=== PATIENT | female | born 1935 | race Caucasian/White ===

== ENCOUNTER 2016-12-22 15:26 | Emergency (ER) | payer OTHER ==
--- NOTE | 2016-12-22 16:13 | PROVIDER DOCUMENTATION ---
HPI-Neurological Disorder - General Chief Complaint: Weakness Stated Complaint: generalized weakness Time Seen by Provider: 12/22/16 15:48 Source: patient, family Allergies/Adverse Reactions: Patient Allergies Allergy/AdvReac Type Severity Reaction Status Date / Time codeine [Codeine] Allergy Severe Unknown Verified 12/06/12 16:38 Sulfa (Sulfonamide Allergy Intermediate NAUSEA Verified 12/06/12 16:38 Antibiotics) Home Medications: Home Medication List Medication Instructions Recorded Confirmed Last Taken Type Aspirin EC 81 mg PO DAILY 12/06/12 12/22/16 12/22/16 08:00 History Diltiazem C.d. [Cardizem C.d] 180 mg PO DAILY 12/06/12 12/22/16 12/22/16 08:00 History Omeprazole [Prilosec] 20 mg PO BID 12/06/12 12/22/16 12/22/16 08:00 History Baclofen 10 mg PO HS 12/29/14 12/22/16 12/21/16 20:00 History Citalopram [Celexa] 20 mg PO DAILY 12/29/14 12/22/16 12/22/16 08:00 History Clonazepam 1 mg PO BID 12/29/14 12/22/16 12/22/16 08:00 History Donepezil [Aricept] 10 mg PO HS 12/29/14 12/22/16 12/21/16 20:00 History Flecainide [Tambocor] 50 mg PO BID 12/29/14 12/22/16 12/22/16 08:00 History Losartan Potassium 25 mg PO DAILY 12/29/14 12/22/16 12/22/16 08:00 History - History of Present Illness-Neuro Nature of Presenting Problem: 81 with dementia who had decreased responsiveness and extreme weakness while bathing about 2 pm today. No focal weakness or change in speech. Onset/Duration: reports: other (2 pm) Timing: reports: still present Context: reports: other (taking a bath) Character of Altered Mental Status: reports: decreased responsiveness Any recent trauma/injury?: reports: none Character of Deficits: reports: new weakness, decreased ability to walk New weakness or altered sensation location:: reports: other (generalized. no focal finding) Cognitive Baseline: alert but disoriented Gait Baseline: walks without assistance (short distances) Associated Symptoms: reports: short of breath (mild, feels chilled) Review of Systems - Adult - REVIEW OF SYSTEMS - ADULT Constitutional: reports: see HPI Eyes: reports: no symptoms reported Ears, Nose, Mouth & Throat: reports: see HPI Cardiovascular: reports: no symptoms reported Respiratory: reports: shortness of breath Gastrointestinal: reports: no symptoms reported Genitourinary: reports: no symptoms reported Musculoskeletal: reports: no symptoms reported Integumentary: reports: no symptoms reported Neurological: reports: see HPI, other (dementia) Psychiatric: reports: no symptoms reported Past History - Adult - PAST MEDICAL HISTORY-ADULT Review of Records: reports: Old Records Reviewed, Nursing Assessment Review, Medications Reviewed Cardiovascular: reports: A-Fib, HTN Respiratory: reports: COPD (recent PFT suggest copd) Gastrointestinal: reports: denies history Genitourinary: reports: denies history Musculoskeletal: reports: arthritis Neurological: reports: CVA, dementia Other Conditions: reports: other cancer (breast) - PRIOR SURGERIES/PROCEDURES Surgical/Procedure History: reports: orthopedic (extremity) (right knee scope), other (left masectomy/lens sx/bladder tact/) - IMMUNIZATION STATUS Childhood Immunizations: See Nurse Assessment Flu Vaccine: See Nurse Assessment Physical Exam- Neurological - Physical Exam-Neuro Initial Vital Signs Reviewed: Yes General Appearance: alert, no apparent distress Eye Exam: bilateral eye: normal inspection, PERRL, EOMI HENMT: normal ENT inspection, pharynx normal Head Injury: no evidence of injury Neck: non-tender, supple, normal inspection Respiratory: chest non-tender, lungs clear, normal breath sounds Cardiovascular: regular rate, rhythm, no edema, no gallop, no JVD, no murmur Abdominal Exam: normal bowel sounds, non tender, soft, no organomegaly Lymphatic: no adenopathy Extremity: non-tender, normal inspection, no pedal edema handkerchief folder Exam: PERRL Motor/Sensory: no motor deficit, no sensory deficit Neurologic: grossly normal, no motor/sensory deficits Integumentary: normal color, normal turgor, warm/dry Psych/Mental Status: other (oriented x1) Progress - PLAN OF CARE/RESULTS Progress/Plan/Lab Results: Laboratory Tests 12/22/16 12/22/16 12/22/16 16:59 16:59 16:59 WBC 6.57 RBC 3.81 L Hgb 12.2 Hct 36.8 L MCV 96.6 MCH 32.0 H MCHC 33.2 RDW Std Deviation 12.9 Plt Count 228 MPV 10.2 Immature Gran % (Auto) 0.0 Neut % (Auto) 58.3 Lymph % (Auto) 31.8 [place] % (Auto) 7.8 Eos % (Auto) 1.5 Baso % (Auto) 0.6 Immature Gran # (Auto) 0.00 Neut # (Auto) 3.83 Lymph # (Auto) 2.09 [place] # (Auto) 0.51 Eos # (Auto) 0.10 Baso # (Auto) 0.04 PT INR PTT (Actin FS) Sodium 138 Potassium 4.1 Chloride 102 Carbon Dioxide 23 L Anion Gap 13 BUN 18 Creatinine 1.6 H Estimated GFR/1.73 m2 31 BUN/Creatinine Ratio 11 Glucose 94 Calculated Osmolality 277 Calcium 8.7 L Total Bilirubin 0.27 AST 11 ALT 10 Alkaline Phosphatase 94 Creatine Kinase 80 Troponin T Total Protein 6.5 Albumin 3.8 Globulin 2.7 Albumin/Globulin Ratio 1.4 Plasma Lactate Urine Source Urine Color Urine Turbidity Urine pH Ur Specific [place] Urine Protein Ur Glucose (Stick) Ur Ketones (Stick) Urine Blood Urine Nitrite Urine Bilirubin Urobilinogen Dipstick Urine Leukocytes Urine WBC (Auto) Urine RBC (Auto) U Epithel Cells (Auto) Urine Bacteria (Auto) Plasma/Serum Ethyl Alc 12/22/16 12/22/16 12/22/16 16:59 16:59 17:41 WBC RBC Hgb Hct MCV MCH MCHC RDW Std Deviation Plt Count MPV Immature Gran % (Auto) Neut % (Auto) Lymph % (Auto) [place] % (Auto) Eos % (Auto) Baso % (Auto) Immature Gran # (Auto) Neut # (Auto) Lymph # (Auto) [place] # (Auto) Eos # (Auto) Baso # (Auto) PT 10.8 INR 1.02 PTT (Actin FS) 26.2 Sodium Potassium Chloride Carbon Dioxide Anion Gap BUN Creatinine Estimated GFR/1.73 m2 BUN/Creatinine Ratio Glucose Calculated Osmolality Calcium Total Bilirubin AST ALT Alkaline Phosphatase Creatine Kinase Troponin T < 0.010 Total Protein Albumin Globulin Albumin/Globulin Ratio Plasma Lactate Urine Source CATH Urine Color YELLOW Urine Turbidity CLEAR Urine pH 6.0 Ur Specific [place] 1.012 Urine Protein NEGATIVE Ur Glucose (Stick) NEGATIVE Ur Ketones (Stick) NEGATIVE Urine Blood NEGATIVE Urine Nitrite NEGATIVE Urine Bilirubin NEGATIVE Urobilinogen Dipstick 3 A Urine Leukocytes NEGATIVE Urine WBC (Auto) <10 Urine RBC (Auto) <10 U Epithel Cells (Auto) <10 Urine Bacteria (Auto) NEGATIVE Plasma/Serum Ethyl Alc 12/22/16 18:48 WBC RBC Hgb Hct MCV MCH MCHC RDW Std Deviation Plt Count MPV Immature Gran % (Auto) Neut % (Auto) Lymph % (Auto) [place] % (Auto) Eos % (Auto) Baso % (Auto) Immature Gran # (Auto) Neut # (Auto) Lymph # (Auto) [place] # (Auto) Eos # (Auto) Baso # (Auto) PT INR PTT (Actin FS) Sodium Potassium Chloride Carbon Dioxide Anion Gap BUN Creatinine Estimated GFR/1.73 m2 BUN/Creatinine Ratio Glucose Calculated Osmolality Calcium Total Bilirubin AST ALT Alkaline Phosphatase Creatine Kinase Troponin T Total Protein Albumin Globulin Albumin/Globulin Ratio Plasma Lactate 0.7 Urine Source Urine Color Urine Turbidity Urine pH Ur Specific [place] Urine Protein Ur Glucose (Stick) Ur Ketones (Stick) Urine Blood Urine Nitrite Urine Bilirubin Urobilinogen Dipstick Urine Leukocytes Urine WBC (Auto) Urine RBC (Auto) U Epithel Cells (Auto) Urine Bacteria (Auto) Plasma/Serum Ethyl Alc Orders Category Date Time Status Cardiac Monitoring DIRECTED Care 12/22/16 15:58 Active Finger Stick Blood Sugar (ED) DIRECTED Care 12/22/16 15:58 Active Oxygen Therapy- ED Nursing DIRECTED Care 12/22/16 15:58 Active Saline Loc NOW Care 12/22/16 15:58 Active CHEST-PORTABLE [RAD] Stat Exams 12/22/16 15:59 Draft HEAD W/O CONTRAST [CT] Stat Exams 12/22/16 16:00 Completed ALCOHOL BLOOD Stat Lab 12/22/16 16:59 Completed BLOOD CULTURE [BLDCUL] Stat Lab 12/22/16 16:37 Results CBC WITH ELECTRONIC DIFF [HEME] Stat Lab 12/22/16 16:59 Completed CK PROFILE [SP CHEM] Stat Lab 12/22/16 16:59 Completed COMPREHENSIVE METABOLIC PANEL [CHEM] Stat Lab 12/22/16 16:59 Completed LACTATE, PLASMA [CHEM] Stat Lab 12/22/16 18:48 Completed PROTIME WITH INR [COAG] Stat Lab 12/22/16 16:59 Completed PTT [COAG] Stat Lab 12/22/16 16:59 Completed TROPONIN T Stat Lab 12/22/16 16:59 Completed URINALYSIS W/POSS RFLX CULT [URINALYSIS] Stat Lab 12/22/16 17:41 Completed Pulse Oximetry Stat Oth 12/22/16 15:58 Active EKG [EKG] Stat Ther 12/22/16 15:58 Ordered Vital Signs Pulse Resp BP Pulse Ox 12/22/16 19:30 62 18 164/48 96 12/22/16 16:40 64 19 147/93 99 12/22/16 15:43 66 27 H 147/93 99 codeine [Codeine] Allergy (Severe, Verified 12/06/12 16:38) Unknown makes her very nervous, feels like i could go to sleep and not wake up Sulfa (Sulfonamide Antibiotics) Allergy (Intermediate, Verified 12/06/12 16:38) NAUSEA Aspirin EC 81 mg PO DAILY 12/06/12 Diltiazem C.d. [Cardizem C.d] 180 mg PO DAILY 12/06/12 Omeprazole [Prilosec] 20 mg PO BID 12/06/12 Baclofen 10 mg PO HS 12/29/14 Citalopram [Celexa] 20 mg PO DAILY 12/29/14 Clonazepam 1 mg PO BID 12/29/14 Donepezil [Aricept] 10 mg PO HS 12/29/14 Flecainide [Tambocor] 50 mg PO BID 12/29/14 Losartan Potassium 25 mg PO DAILY 12/29/14 I&O 12/21/16 12/22/16 12/23/16 06:59 06:59 06:59 Output Total 100 Balance -100 Laboratory 12/22/16 12/22/16 12/22/16 18:48 17:41 16:59 WBC RBC Hgb Hct MCV MCH MCHC RDW Std Deviation Plt Count MPV Immature Gran % (Auto) Neut % (Auto) Lymph % (Auto) [place] % (Auto) Eos % (Auto) Baso % (Auto) Immature Gran # (Auto) Neut # (Auto) Lymph # (Auto) [place] # (Auto) Eos # (Auto) Baso # (Auto) PT INR PTT (Actin FS) Sodium Potassium Chloride Carbon Dioxide Anion Gap BUN Creatinine Estimated GFR/1.73 m2 BUN/Creatinine Ratio Glucose Calculated Osmolality Calcium Total Bilirubin AST ALT Alkaline Phosphatase Creatine Kinase Troponin T < 0.010 Total Protein Albumin Globulin Albumin/Globulin Ratio Plasma Lactate 0.7 Urine Source CATH Urine Color YELLOW Urine Turbidity CLEAR Urine pH 6.0 Ur Specific [place] 1.012 Urine Protein NEGATIVE Ur Glucose (Stick) NEGATIVE Ur Ketones (Stick) NEGATIVE Urine Blood NEGATIVE Urine Nitrite NEGATIVE Urine Bilirubin NEGATIVE Urobilinogen Dipstick 3 A Urine Leukocytes NEGATIVE Urine WBC (Auto) <10 Urine RBC (Auto) <10 U Epithel Cells (Auto) <10 Urine Bacteria (Auto) NEGATIVE Plasma/Serum Ethyl Alc 12/22/16 12/22/16 12/22/16 16:59 16:59 16:59 WBC 6.57 RBC 3.81 L Hgb 12.2 Hct 36.8 L MCV 96.6 MCH 32.0 H MCHC 33.2 RDW Std Deviation 12.9 Plt Count 228 MPV 10.2 Immature Gran % (Auto) 0.0 Neut % (Auto) 58.3 Lymph % (Auto) 31.8 [place] % (Auto) 7.8 Eos % (Auto) 1.5 Baso % (Auto) 0.6 Immature Gran # (Auto) 0.00 Neut # (Auto) 3.83 Lymph # (Auto) 2.09 [place] # (Auto) 0.51 Eos # (Auto) 0.10 Baso # (Auto) 0.04 PT 10.8 INR 1.02 PTT (Actin FS) 26.2 Sodium 138 Potassium 4.1 Chloride 102 Carbon Dioxide 23 L Anion Gap 13 BUN 18 Creatinine 1.6 H Estimated GFR/1.73 m2 31 BUN/Creatinine Ratio 11 Glucose 94 Calculated Osmolality 277 Calcium 8.7 L Total Bilirubin 0.27 AST 11 ALT 10 Alkaline Phosphatase 94 Creatine Kinase 80 Troponin T Total Protein 6.5 Albumin 3.8 Globulin 2.7 Albumin/Globulin Ratio 1.4 Plasma Lactate Urine Source Urine Color Urine Turbidity Urine pH Ur Specific [place] Urine Protein Ur Glucose (Stick) Ur Ketones (Stick) Urine Blood Urine Nitrite Urine Bilirubin Urobilinogen Dipstick Urine Leukocytes Urine WBC (Auto) Urine RBC (Auto) U Epithel Cells (Auto) Urine Bacteria (Auto) Plasma/Serum Ethyl Alc 12/22/16 16:59 WBC RBC Hgb Hct MCV MCH MCHC RDW Std Deviation Plt Count MPV Immature Gran % (Auto) Neut % (Auto) Lymph % (Auto) [place] % (Auto) Eos % (Auto) Baso % (Auto) Immature Gran # (Auto) Neut # (Auto) Lymph # (Auto) [place] # (Auto) Eos # (Auto) Baso # (Auto) PT INR PTT (Actin FS) Sodium Potassium Chloride Carbon Dioxide Anion Gap BUN Creatinine Estimated GFR/1.73 m2 BUN/Creatinine Ratio Glucose Calculated Osmolality Calcium Total Bilirubin AST ALT Alkaline Phosphatase Creatine Kinase Troponin T Total Protein Albumin Globulin Albumin/Globulin Ratio Plasma Lactate Urine Source Urine Color Urine Turbidity Urine pH Ur Specific [place] Urine Protein Ur Glucose (Stick) Ur Ketones (Stick) Urine Blood Urine Nitrite Urine Bilirubin Urobilinogen Dipstick Urine Leukocytes Urine WBC (Auto) Urine RBC (Auto) U Epithel Cells (Auto) Urine Bacteria (Auto) Plasma/Serum Ethyl Alc - EKG 1 Time of EKG reading by physician:: 17:10 EKG Read and Signed by:: Peggy Leavitt EKG Interpretation (*Must complete 3 of following elements*): Abnormal Rate: 62 Rhythm: nsr [place]: normal QRS: normal IN Interval: prolonged ST Wave: normal - XRAY 1 XRAY Study: Chest (no acute changes) - CT/MRI 1 CT Study: Head (microvascular changes, no acute change) - CHANGE OF SHIFT REPORT (ED Provider) Tentative Impression of Patient: Patient feeling better , symptoms resolved Departure - Departure Time of Disposition Order: 19:06 DIAGNOSIS: Weakness Disposition: HOME 01 Certified Medical Emergency: Emergent Condition: Stable Additional Instructions: Rest, Drink plenty of fluids. stand and walk only with assistance in the next day or two. Call your doctor to schedule a follow up appointment. Keep your cardiology appointment. Return to emergency department if symptoms recur or worsen. Continue your current medications. ED Follow Up Instructions: You have been treated by a care provider in the Emergency Department. These instructions are being provided to you so you can have an understanding of how to care for yourself upon discharge. Upon discharge from the Emergency Department, you are responsible for making arrangements for follow-up care by a physician of your choice. Take all prescribed medications as directed. Return to the Emergency Department immediately for any new or worsening symptoms. You may call the Physician Referral phone number at [phone] to obtain a list of Physicians who are taking new patients. Referrals: Alexandre Gleason MD [Primary Care Provider] - Tank Ash [NON-STAFF] - Instructions: Weakness, [id number]
--- NOTE | 2016-12-22 16:41 | Diag Imaging Result Document ---
PROCEDURE NAME: HEAD W/O CONTRAST - 12/22/2016 CT BRAIN WITHOUT CONTRAST. DOSE REDUCTION PROTOCOL. COMPARISON: 12/29/2014. FINDINGS: No parenchymal hemorrhage. No epidural or subdural hematoma. No subarachnoid hemorrhage. No mass identified on this noncontrasted exam. There are chronic microvascular ischemic changes. No hydrocephalus. No sinus opacification. IMPRESSION: 1. No hemorrhage. 2. Chronic microvascular ischemic changes. A preliminary report was given at 04:20 p.m..
[2016-12-22 17:18] LABS: MANUAL DIFF NEEDED? NO
[2016-12-22 17:29] LABS: BASO% 0.6 % (0.0-0.8); EOS% 1.5 % (0.0-10.0); HEMATOCRIT 36.8 % (37.0-47.0); HEMOGLOBIN 12.2 g/dL (12.0-16.0); LYMPH# 2.09 X1000 (1.2-3.4); LYMPH% 31.8 % (20.5-51.1); MCHC 33.2 g/dL (33-37); MCV 96.6 FL (81-99); MONO# 0.51 X1000 (0.11-0.59); MONO% 7.8 % (1.7-9.3); MPV 10.2 FL (7.4-10.4); NEUT% 58.3 % (42.2-75.2); PLT 228 X1000 (130-400); RBC 3.81 XMIL (4.2-5.4)
[2016-12-22 17:36] LABS: INR 1.02; PROTIME 10.8 Seconds (9.2-11.7); PTT 26.2 Seconds (22.0-36.0)
[2016-12-22 17:44] LABS: ALBUMIN 3.8 g/dL (3.5-5.0); CALCIUM 8.7 mg/dL (8.8-10.2); POTASSIUM 4.1 mmol/L (3.5-5.1); TOTAL BILIRUBIN 0.27 mg/dL (0.20-1.00); TOTAL PROTEIN 6.5 g/dL (6.3-8.3)
--- NOTE | 2016-12-22 18:06 | Diag Imaging Result Document ---
PROCEDURE NAME: CHEST-PORTABLE - 12/22/2016 CHEST, SINGLE VIEW: COMPARISON: 12/29/2014. FINDINGS: The lungs are well expanded. The heart is not enlarged. The vessels are not distended. No pneumonia. No pleural effusions identified. IMPRESSION: Negative chest.
[2016-12-22 18:08] LABS: URINE CULTURE NEEDED? NO; URINE MICRO REVIEW NEEDED? NO; URINE SOURCE CATH
[2016-12-22 18:20] LABS: BILIRUBIN URINE NEGATIVE (NEGATIVE); BLOOD URINE NEGATIVE (NEGATIVE); COLOR YELLOW; GLUCOSE URINE NEGATIVE (NEGATIVE); LEUKOCYTES URINE NEGATIVE (NEGATIVE); NITRITE URINE NEGATIVE (NEGATIVE); PROTEIN URINE NEGATIVE (NEGATIVE); SP GRAVITY URINE 1.012; TURBIDITY URINE CLEAR (CLEAR); UR EPITHELIAL CELLS <10 /HPF (<10); URINE BACTERIA NEGATIVE /HPF; URINE RBC <10 /HPF (<10); URINE WBC <10 /HPF (<10); UROBILINOGEN URINE 3 mg/dL (NORMAL)
[2016-12-22 19:30] VITALS: BP 164/48
--- NOTE | 2016-12-23 05:36 | EKG Report ---
Test Performed on : 12/22/2016 5:10:28 PM Test Reason : AMS Blood Pressure : / mmHG Vent. Rate : 062 BPM Atrial Rate : 062 BPM P-R Int : 224 ms QRS Dur : 088 ms QT Int : 450 ms P-R-T Axes : 054 036 046 degrees QTc Int : 456 ms Sinus rhythm. with 1st degree AV block. Otherwise normal ECG When compared with ECG of 29-DEC-2014 16:40, MO interval has increased Unconfirmed Result
== END 2016-12-22 19:30 | disposition home or self-care (01) ==
LOC: EDUNIT# → EDBD → ED 15:26
DX: R53.1 Weakness (principal); R94.31 Abnormal electrocardiogram [ECG] [EKG]; R94.09 Abnormal results of other function studies of central nervous system; R06.02 Shortness of breath; R68.83 Chills (without fever); I48.91 Unspecified atrial fibrillation; I10 Essential (primary) hypertension; J44.9 Chronic obstructive pulmonary disease, unspecified; Z79.899 Other long term (current) drug therapy; M19.90 Unspecified osteoarthritis, unspecified site; F03.90 Unspecified dementia, unspecified severity, without behavioral disturbance, psychotic disturbance, mood disturbance, and anxiety; Z79.82 Long term (current) use of aspirin; Z86.73 Personal history of transient ischemic attack (TIA), and cerebral infarction without residual deficits; Z85.3 Personal history of malignant neoplasm of breast
CPT/HCPCS: 70450; 71010; 80053; 81001; 82550; 82948; 83605; 84484; 85025; 85610; 85730; 87040; 93005; G0480; 80320

== ENCOUNTER 2018-11-11 23:55 | Inpatient (IN) ==
[2018-11-12] MEDS ORDERED: ZOFRAN IV ONE (04:20)
[2018-11-12 04:30] LABS: URINE SOURCE CLEAN CATCH
[2018-11-12 04:33] LABS: BASO# 0.03 X1000 (0.0-0.2); BASO% 0.5 % (0.0-0.8); EOS# 0.14 X1000 (0.0-0.7); EOS% 2.2 % (0.0-10.0); HEMOGLOBIN 11.8 g/dL (12.0-16.0); IMM GRAN# 0.02 X1000 (0.0-0.04); IMM GRAN% 0.3 % (0.0-0.5); LYMPH# 1.69 X1000 (1.2-3.4); LYMPH% 26.6 % (20.5-51.1); MCH 30.7 PG (27-31); MCHC 31.1 g/dL (33-37); MONO# 0.34 X1000 (0.11-0.59); MONO% 5.4 % (1.7-9.3); MPV 10.9 FL (7.4-10.4); NEUT# 4.13 X1000 (1.4-6.5); PLT 231 X1000 (130-400); RBC 3.84 XMIL (4.2-5.4); RDW 13.4 % (11.5-14.5); WBC 6.35 X1000 (4.8-10.8)
[2018-11-12 05:01] LABS: ALB/GLOB RATIO 1.3; ALBUMIN 4.2 g/dL (3.5-5.0); CALCIUM 9.5 mg/dL (8.8-10.2); CREATININE 1.7 mg/dL (0.5-0.9); POTASSIUM 3.9 mmol/L (3.5-5.1); TOTAL BILIRUBIN 0.32 mg/dL (0.20-1.00); TOTAL PROTEIN 7.4 g/dL (6.3-8.3)
[2018-11-12 05:59] LABS: BILIRUBIN URINE NEGATIVE (NEGATIVE); BLOOD URINE NEGATIVE (NEGATIVE); COLOR YELLOW; GLUCOSE URINE NEGATIVE (NEGATIVE); KETONE URINE NEGATIVE (NEGATIVE); LEUKOCYTES URINE MODERATE (NEGATIVE); NITRITE URINE NEGATIVE (NEGATIVE); PROTEIN URINE NEGATIVE (NEGATIVE); SP GRAVITY URINE 1.015; TURBIDITY URINE CLEAR (CLEAR); UR EPITHELIAL CELLS <10 /HPF (<10); URINE BACTERIA 1+ /HPF; URINE RBC <10 /HPF (<10); URINE WBC <10 /HPF (<10); UROBILINOGEN URINE NORMAL (NORMAL)
--- NOTE | 2018-11-12 06:32 | Diag Imaging Result Doc PS360 ---
FLAT/UPRIGHT ABD/1 VIEW CHEST - 11/12/2018 INDICATION: vomiting TECHNIQUE: COMPARISON: 04/01/2018 FINDINGS: The chest is clear. There is a nonobstructive bowel gas pattern. No free air or abnormal calcifications. IMPRESSION: Negative exam. Electronically signed by Pranav Cummins 11/12/2018 6:29 AM
--- NOTE | 2018-11-12 07:45 | PROVIDER DOCUMENTATION ---
This chart was entered by Fabio Romero Scribe, acting as scribe for Bret Wolff MD. HPI-Abdominal Pain/GI Problem - General Source: patient, family () - History of Present Illness-ABD Nature of Presenting Problems: 83 yof presents with as historian with cc of nausea and vomiting x 4 days worsening. reports significant dementia. also expresses he would like admitted for 3 days so she can have 100 days of rehab for weakness. <Bret Wolff - Last Filed: 11/12/18 07:44> <Bret Romero - Last Filed: 11/12/18 08:46> - General Chief Complaint: Nausea/Vomiting Stated Complaint: nausea/vomiting Time Seen by Provider: 11/12/18 03:47 Allergies/Adverse Reactions: Patient Allergies Allergy/AdvReac Type Severity Reaction Status Date / Time codeine [Codeine] Allergy Severe Unknown Verified 11/12/18 02:17 Sulfa (Sulfonamide Allergy Intermediate NAUSEA Verified 11/12/18 02:17 Antibiotics) Home Medications: Home Medication List Medication Instructions Recorded Confirmed Last Taken Type Aspirin EC 81 mg PO DAILY 12/06/12 11/12/18 11/11/18 History Omeprazole [Prilosec] 20 mg PO BID 12/06/12 11/12/18 11/11/18 History Clonazepam 1 mg PO Q6HR PRN 12/29/14 11/12/18 11/11/18 History Donepezil [Aricept] 10 mg PO HS 12/29/14 11/12/18 11/11/18 History Losartan Potassium 12.5 mg PO DAILY 12/29/14 11/12/18 11/11/18 History Acetaminophen [Tylenol] 2 tab PO Q4HR PRN 11/12/18 11/12/18 11/11/18 History Bisacodyl [Dulcolax] 1 supp RC QHS PRN 11/12/18 11/12/18 Unknown History Calcium Carbonate Chew [Tums] 2 tab PO Q4HR PRN 11/12/18 11/12/18 11/11/18 History Clopidogrel Bisulfate [Plavix] 1 tab PO DAILY 11/12/18 11/12/18 11/11/18 History Docusate Sodium [Colace] 1 cap PO BID PRN 11/12/18 11/12/18 Unknown History Ergocalciferol (Vitamin D2) 1 cap PO DIRECTED 11/12/18 11/12/18 Unknown History [Vitamin D2] Hydrocortisone [Proctozone-Hc] 1 applicatn RC BID PRN 11/12/18 11/12/18 Unknown History Ibuprofen [Motrin] 1 tab PO Q4HR PRN 11/12/18 11/12/18 11/11/18 History Memantine HCl [Namenda] 1 tab PO BID 11/12/18 11/12/18 11/11/18 History Metoprolol Succinate E.r. [Toprol 1 tab PO DAILY 11/12/18 11/12/18 11/11/18 History Xl] Nitroglycerin Sl [Nitroglycerin] 1 tab SL Q5H PRN PRN 11/12/18 11/12/18 History Polyethylene Glycol 3350 [Miralax] 17 gm PO QAM 11/12/18 11/12/18 11/11/18 History Quetiapine [Seroquel] 1 tab PO QHS 11/12/18 11/12/18 11/11/18 History Sennosides/Docusate Sodium 1 tab PO BID 11/12/18 11/12/18 11/11/18 History [Senna-S Tablet] Review of Systems - Adult - REVIEW OF SYSTEMS - ADULT Constitutional: denies: chills, fever, fatique Eyes: reports: no symptoms reported Ears, Nose, Mouth & Throat: reports: no symptoms reported Cardiovascular: denies: chest pain, irregular heart rate, orthopnea Respiratory: denies: cough, shortness of breath, wheezing Gastrointestinal: reports: nausea, vomiting. denies: abdominal pain, diarrhea, difficulty swallowing, frequent heartburn Genitourinary: denies: dysuria, flank pain, frequent UTI's, hematuria Musculoskeletal: reports: no symptoms reported Integumentary: reports: no symptoms reported Neurological: reports: no symptoms reported Psychiatric: reports: no symptoms reported Endocrine: reports: no symptoms reported Hematologic/Lymphatic: reports: no symptoms reported Allergic/Immunologic: reports: no symptoms reported All Other Systems: Reviewed and Negative <Bret Wolff - Last Filed: 11/12/18 07:44> Past History - Adult - PAST MEDICAL HISTORY-ADULT Review of Records: reports: Nursing Assessment Review, Medications Reviewed Cardiovascular: reports: A-Fib, HTN Respiratory: reports: COPD (recent PFT suggest copd) Gastrointestinal: reports: denies history Genitourinary: reports: denies history Musculoskeletal: reports: arthritis Neurological: reports: CVA, dementia Other Conditions: reports: other cancer (breast) - PRIOR SURGERIES/PROCEDURES Surgical/Procedure History: reports: orthopedic (extremity) (right knee scope), other (left masectomy/lens sx/bladder tact/) - IMMUNIZATION STATUS Childhood Immunizations: See Nurse Assessment Flu Vaccine: See Nurse Assessment - SOCIAL HISTORY Smoking: non-smoker <Bret Wolff - Last Filed: 11/12/18 07:44> Physical Exam-General - PHYSICAL EXAM-ADULT Initial Vital Signs Reviewed: Yes - CONSTITUTIONAL General Appearance: appears well, alert, no apparent distress - EYES Eyes: PERRL/EOMI, pink conjunctivae - HEAD, EARS, NOSE, MOUTH & THROAT HENMT: moist mucous membranes - NECK Neck: non-tender, full range of motion, supple, normal inspection - RESPIRATORY Respiratory: chest non-tender, lungs clear, normal breath sounds, no pleuratic chest pain, no respiratory distress, no accessory muscle use - CARDIOVASCULAR Cardiovascular: regular rate, rhythm, systolic murmur - GASTROINTESTINAL (ABDOMEN) Abdominal Exam: normal bowel sounds, non tender, soft, no organomegaly, no pulsatile mass - MUSCULOSKELETAL Back Exam: normal inspection, no CVA tenderness, no vertebral tenderness Extremity: normal range of motion, non-tender - SKIN Integumentary: normal color, normal turgor, warm/dry - NEUROLOGIC Neurologic: grossly normal - PSYCHIATRIC Psych/Mental Status: normal mood/affect, normal thought content, normal thought process. negative: oriented x 3 (x1) <Bret Wolff - Last Filed: 11/12/18 07:44> Progress - PLAN OF CARE/RESULTS Progress/Plan/Lab Results: Vital Signs - 8 hr 11/12/18 00:32 11/12/18 02:16 11/12/18 03:20 Temperature 97.6 F 97.5 F L Pulse Rate 61 69 Respiratory Rate 14 22 Blood Pressure 162/90 158/70 O2 Sat by Pulse Oximetry 96 96 11/12/18 04:47 Temperature Pulse Rate 62 Respiratory Rate 12 Blood Pressure 154/71 O2 Sat by Pulse Oximetry 98 Laboratory Results - last 24 hr 11/12/18 11/12/18 11/12/18 00:18 00:18 00:18 WBC 6.35 RBC 3.84 L Hgb 11.8 L Hct 38.0 MCV 99.0 MCH 30.7 MCHC 31.1 L RDW Std Deviation 13.4 Plt Count 231 MPV 10.9 H Immature Gran % (Auto) 0.3 Neut % (Auto) 65.0 Lymph % (Auto) 26.6 [place] % (Auto) 5.4 Eos % (Auto) 2.2 Baso % (Auto) 0.5 Immature Gran # (Auto) 0.02 Neut # (Auto) 4.13 Lymph # (Auto) 1.69 [place] # (Auto) 0.34 Eos # (Auto) 0.14 Baso # (Auto) 0.03 Sodium 141 Potassium 3.9 Chloride 103 Carbon Dioxide 27 Anion Gap 11 BUN 24 H Creatinine 1.7 H Estimated GFR/1.73 m2 29 BUN/Creatinine Ratio 14 Glucose 94 Calculated Osmolality 285 Calcium 9.5 Total Bilirubin 0.32 AST 226 H ALT 85 H Alkaline Phosphatase 108 H Total Protein 7.4 Albumin 4.2 Globulin 3.2 Albumin/Globulin Ratio 1.3 Amylase 115 Urine Source Urine Color Urine Turbidity Urine pH Ur Specific [place] Urine Protein Ur Glucose (Stick) Ur Ketones (Stick) Urine Blood Urine Nitrite Urine Bilirubin Urobilinogen Dipstick Urine Leukocytes Urine WBC (Auto) Urine RBC (Auto) U Epithel Cells (Auto) Urine Bacteria (Auto) 11/12/18 00:18 WBC RBC Hgb Hct MCV MCH MCHC RDW Std Deviation Plt Count MPV Immature Gran % (Auto) Neut % (Auto) Lymph % (Auto) [place] % (Auto) Eos % (Auto) Baso % (Auto) Immature Gran # (Auto) Neut # (Auto) Lymph # (Auto) [place] # (Auto) Eos # (Auto) Baso # (Auto) Sodium Potassium Chloride Carbon Dioxide Anion Gap BUN Creatinine Estimated GFR/1.73 m2 BUN/Creatinine Ratio Glucose Calculated Osmolality Calcium Total Bilirubin AST ALT Alkaline Phosphatase Total Protein Albumin Globulin Albumin/Globulin Ratio Amylase Urine Source CLEAN CATCH Urine Color YELLOW Urine Turbidity CLEAR Urine pH 6.0 Ur Specific [place] 1.015 Urine Protein NEGATIVE Ur Glucose (Stick) NEGATIVE Ur Ketones (Stick) NEGATIVE Urine Blood NEGATIVE Urine Nitrite NEGATIVE Urine Bilirubin NEGATIVE Urobilinogen Dipstick NORMAL Urine Leukocytes MODERATE A Urine WBC (Auto) <10 Urine RBC (Auto) <10 U Epithel Cells (Auto) <10 Urine Bacteria (Auto) 1+ Orders Category Date Time Status FLAT/UPRIGHT ABD/1 VIEW CHEST [RAD] Stat Exams 11/12/18 04:18 Completed AMYLASE [CHEM] Stat Lab 11/12/18 00:18 Completed CBC WITH ELECTRONIC DIFF [HEME] Stat Lab 11/12/18 00:18 Completed COMPREHENSIVE METABOLIC PANEL [CHEM] Stat Lab 11/12/18 00:18 Completed UA NIMS W/REFLEX CULT [URINALYSIS] Stat Lab 11/12/18 00:18 Completed Ondansetron [Zofran] Med 11/12/18 04:20 Discontinued 4 mg IV NOW ONE Result Diagrams: 11/12/18 00:18 11/12/18 00:18 - XRAY 1 XRAY: Bilateral XRAY Study: Abdomen Impression: Normal ( FINDINGS: The chest is clear. There is a nonobstructive bowel gas pattern. No free air or abnormal calcifications. IMPRESSION: Negative exam. Electronically signed by Pranav Cummins 11/12/2018 6:29 AM) - CHANGE OF SHIFT REPORT (ED Provider) Report Given and Care Transferred to:: Dr. Bret Romero Time of Transfer: 06:51 <Bret Wolff - Last Filed: 11/12/18 07:44> - PLAN OF CARE/RESULTS Progress/Plan/Lab Results: Vital Signs - 8 hr 11/12/18 00:50 11/12/18 01:00 11/12/18 01:10 Temperature Pulse Rate 65 68 67 Respiratory Rate 17 16 15 Blood Pressure O2 Sat by Pulse Oximetry 95 94 L 92 L 11/12/18 01:20 11/12/18 01:30 11/12/18 01:40 Temperature Pulse Rate 69 75 78 Respiratory Rate 15 19 15 Blood Pressure O2 Sat by Pulse Oximetry 94 L 94 L 94 L 11/12/18 01:50 11/12/18 02:00 11/12/18 02:10 Temperature Pulse Rate 69 66 73 Respiratory Rate 13 13 27 H Blood Pressure O2 Sat by Pulse Oximetry 93 L 93 L 93 L 11/12/18 02:16 11/12/18 02:20 11/12/18 02:30 Temperature Pulse Rate 67 65 66 Respiratory Rate 18 13 16 Blood Pressure 158/70 O2 Sat by Pulse Oximetry 94 L 94 L 93 L 11/12/18 02:40 11/12/18 02:50 11/12/18 03:00 Temperature Pulse Rate 68 63 70 Respiratory Rate 20 14 23 Blood Pressure O2 Sat by Pulse Oximetry 88 L 98 97 11/12/18 03:10 11/12/18 03:20 11/12/18 03:30 Temperature 97.5 F L Pulse Rate 61 65 63 Respiratory Rate 12 11 L 19 Blood Pressure O2 Sat by Pulse Oximetry 98 98 97 11/12/18 03:40 11/12/18 03:50 11/12/18 04:00 Temperature Pulse Rate 70 82 70 Respiratory Rate 14 20 16 Blood Pressure O2 Sat by Pulse Oximetry 99 100 98 11/12/18 04:03 11/12/18 04:10 11/12/18 04:20 Temperature Pulse Rate 68 71 68 Respiratory Rate 21 19 17 Blood Pressure 154/68 O2 Sat by Pulse Oximetry 98 98 99 11/12/18 04:30 11/12/18 04:33 11/12/18 04:40 Temperature Pulse Rate 70 Respiratory Rate 15 Blood Pressure 154/71 O2 Sat by Pulse Oximetry 98 94 L 97 11/12/18 04:47 11/12/18 04:50 11/12/18 05:00 Temperature Pulse Rate 62 65 63 Respiratory Rate 12 16 14 Blood Pressure 154/71 O2 Sat by Pulse Oximetry 98 98 98 11/12/18 05:10 11/12/18 05:20 11/12/18 05:30 Temperature Pulse Rate 67 61 63 Respiratory Rate 22 15 12 Blood Pressure O2 Sat by Pulse Oximetry 100 11/12/18 05:40 11/12/18 05:50 11/12/18 06:00 Temperature Pulse Rate 70 61 63 Respiratory Rate 16 14 13 Blood Pressure O2 Sat by Pulse Oximetry 98 99 99 11/12/18 06:10 11/12/18 06:20 11/12/18 06:30 Temperature Pulse Rate 59 L 61 64 Respiratory Rate 11 L 16 15 Blood Pressure O2 Sat by Pulse Oximetry 96 98 100 11/12/18 06:40 11/12/18 06:50 11/12/18 07:00 Temperature Pulse Rate 61 70 67 Respiratory Rate 16 13 13 Blood Pressure O2 Sat by Pulse Oximetry 99 94 L 99 11/12/18 07:10 Temperature Pulse Rate 66 Respiratory Rate 15 Blood Pressure O2 Sat by Pulse Oximetry 99 Laboratory Results - last 24 hr 11/12/18 11/12/18 11/12/18 00:18 00:18 00:18 WBC 6.35 RBC 3.84 L Hgb 11.8 L Hct 38.0 MCV 99.0 MCH 30.7 MCHC 31.1 L RDW Std Deviation 13.4 Plt Count 231 MPV 10.9 H Immature Gran % (Auto) 0.3 Neut % (Auto) 65.0 Lymph % (Auto) 26.6 [place] % (Auto) 5.4 Eos % (Auto) 2.2 Baso % (Auto) 0.5 Immature Gran # (Auto) 0.02 Neut # (Auto) 4.13 Lymph # (Auto) 1.69 [place] # (Auto) 0.34 Eos # (Auto) 0.14 Baso # (Auto) 0.03 Sodium 141 Potassium 3.9 Chloride 103 Carbon Dioxide 27 Anion Gap 11 BUN 24 H Creatinine 1.7 H Estimated GFR/1.73 m2 29 BUN/Creatinine Ratio 14 Glucose 94 Calculated Osmolality 285 Calcium 9.5 Total Bilirubin 0.32 AST 226 H ALT 85 H Alkaline Phosphatase 108 H Total Protein 7.4 Albumin 4.2 Globulin 3.2 Albumin/Globulin Ratio 1.3 Amylase 115 Urine Source Urine Color Urine Turbidity Urine pH Ur Specific [place] Urine Protein Ur Glucose (Stick) Ur Ketones (Stick) Urine Blood Urine Nitrite Urine Bilirubin Urobilinogen Dipstick Urine Leukocytes Urine WBC (Auto) Urine RBC (Auto) U Epithel Cells (Auto) Urine Bacteria (Auto) 11/12/18 00:18 WBC RBC Hgb Hct MCV MCH MCHC RDW Std Deviation Plt Count MPV Immature Gran % (Auto) Neut % (Auto) Lymph % (Auto) [place] % (Auto) Eos % (Auto) Baso % (Auto) Immature Gran # (Auto) Neut # (Auto) Lymph # (Auto) [place] # (Auto) Eos # (Auto) Baso # (Auto) Sodium Potassium Chloride Carbon Dioxide Anion Gap BUN Creatinine Estimated GFR/1.73 m2 BUN/Creatinine Ratio Glucose Calculated Osmolality Calcium Total Bilirubin AST ALT Alkaline Phosphatase Total Protein Albumin Globulin Albumin/Globulin Ratio Amylase Urine Source CLEAN CATCH Urine Color YELLOW Urine Turbidity CLEAR Urine pH 6.0 Ur Specific [place] 1.015 Urine Protein NEGATIVE Ur Glucose (Stick) NEGATIVE Ur Ketones (Stick) NEGATIVE Urine Blood NEGATIVE Urine Nitrite NEGATIVE Urine Bilirubin NEGATIVE Urobilinogen Dipstick NORMAL Urine Leukocytes MODERATE A Urine WBC (Auto) <10 Urine RBC (Auto) <10 U Epithel Cells (Auto) <10 Urine Bacteria (Auto) 1+ Orders Category Date Time Status FLAT/UPRIGHT ABD/1 VIEW CHEST [RAD] Stat Exams 11/12/18 04:18 Completed AMYLASE [CHEM] Stat Lab 11/12/18 00:18 Completed CBC WITH ELECTRONIC DIFF [HEME] Stat Lab 11/12/18 00:18 Completed COMPREHENSIVE METABOLIC PANEL [CHEM] Stat Lab 11/12/18 00:18 Completed UA NIMS W/REFLEX CULT [URINALYSIS] Stat Lab 11/12/18 00:18 Completed URINE CULTURE [RM] Routine Lab 11/12/18 07:46 Received Ondansetron [Zofran] Med 11/12/18 04:20 Discontinued 4 mg IV NOW ONE Result Diagrams: 11/12/18 00:18 11/12/18 00:18 - REASSESSMENT Reassessment #1 Time Reassessed: 08:42 Status: unchanged (recurrent vomiting, elev LFTs,dehydration. too weak to walk) - CONSULTS/PCP/HOSPITALIST Notification #1 *Consult/PCP/Hospitalist*: Max for Dr Chandler Time Discussed: 08:44 (admit) <Bret Romero - Last Filed: 11/12/18 08:46> Departure <Bret Wolff - Last Filed: 11/12/18 07:44> - Departure Date of Disposition Decision: 11/12/18 Time of Disposition Decision: 08:44 Certified Medical Emergency: Emergent - Critical Care Note This patient required my direct & personal management of CC.: No <Bret Romero - Last Filed: 11/12/18 08:46> - Departure DIAGNOSIS: Weakness, Dehydration, Elevated liver enzymes CAD (coronary artery disease) Qualifiers: Coronary Disease-Associated Artery/Lesion type: unspecified vessel or lesion type [place] vs. transplanted heart: [place] heart Associated angina: without angina Qualified Code(s): I25.10 - Atherosclerotic heart disease of [place] coronary artery without angina pectoris Disposition: ADMITTED INPATIENT 09 Condition: Stable Referrals and Follow-Ups: Alexandre Gleason MD [Primary Care Provider] - Attestation - Physician/ CABRERA Attestation Patient care was provided by Advanced Practice Provider:: No The physician spent face to face time with patient:: Yes Advanced Practice Provider documentation review:: Supervising physician onsite and consulted in the evaluation and care of this patient. The physician did have a face to face encounter with the patient. <Bret Wolff - Last Filed: 11/12/18 07:44> - Physician/ CABRERA Attestation Patient care was provided by Advanced Practice Provider:: No The physician spent face to face time with patient:: Yes Advanced Practice Provider documentation review:: Supervising physician onsite and consulted in the evaluation and care of this patient. The physician did have a face to face encounter with the patient. <Bret Romero - Last Filed: 11/12/18 08:46> This chart was documented by the indicated scribe, (Fabio Romero Scribe) and accurately reflects the services I performed and decisions made by me, Bret Wolff MD, as attested by the provider's signature.
[2018-11-12] MEDS ORDERED: NS 1,000 ML IV ONE (08:50)
[2018-11-12] MEDS ORDERED: ZOFRAN IV PRN (08:51)
[2018-11-12] MEDS ORDERED: DULCOLAX PR PRN (08:56)
[2018-11-12] MEDS ORDERED: NITROGLYCERIN SL PRN (08:56)
[2018-11-12] MEDS ORDERED: ANUSOL-HC CREAM TOP PRN (08:56)
[2018-11-12] MEDS ORDERED: COLACE PO PRN (08:56)
[2018-11-12] MEDS ORDERED: TUMS PO PRN (08:56)
[2018-11-12] MEDS ORDERED: PLAVIX PO SCH (09:00)
[2018-11-12] MEDS ORDERED: TOPROL XL PO SCH (09:00)
--- NOTE | 2018-11-12 09:44 | Diag Imaging Result Doc PS360 ---
EXAM: CT ABDOMEN/PELVIS W/O CONTRAST INDICATION: abd pain; n/v; transaminitis TECHNIQUE: This exam was performed using automated exposure control, adjustment of mA or kV according to patient size, and/or use of iterative reconstruction technique. COMPARISON: None. FINDINGS: There has been a prior cholecystectomy. The liver is grossly unremarkable. No discrete hepatic mass can be identified as imaged with unenhanced CT. The spleen, pancreas, and adrenal glands are unremarkable. The left kidney is somewhat atrophic. The right kidney has a lobular contour suggesting persistent lobulations versus cortical scarring. There is no hydronephrosis. Urinary bladder is only slightly distended and is grossly unremarkable, otherwise. There has been a prior hysterectomy. There is no evidence of bowel obstruction. No focal bowel wall thickening is identified. There is a moderate-sized hiatal hernia. The remainder of the GI tract is essentially unremarkable. There is degenerative arthropathy throughout the spine. The bony structures are intact. IMPRESSION: Incidental/nonacute findings detailed above. No definite acute pathology. Electronically signed by Clyde Sosa 11/12/2018 9:41 AM
--- NOTE | 2018-11-12 11:26 | HISTORY AND PHYSICAL ---
PRIMARY CARE PROVIDER: Alexandre Gleason CHIEF COMPLAINT: Nausea and vomiting. HISTORY OF PRESENT ILLNESS: Mr. Nicole Nevarez is an 83-year-old, elderly female with a medical history of dementia, COPD, coronary artery disease, atrial fibrillation , who was brought in by her stating that she has had at least 4 days of nausea, vomiting. She has since moved from the ER to the third floor and currently her is not at the bedside. Her dementia is very pleasantly confused state. She does complain of some belching with gas, feels full in her abdomen. She states every time she eats she gets nauseated. She claims to have vomited today and that she only had 2 bites of supper yesterday. She says that she has not had any bowel movements today, she usually has them every other day and sometimes daily. Otherwise no other complaints, no complaints of pain or shortness of breath. Denies fever or chills. Initial workup in the ER revealed normal abdominal x-ray but she did have some elevated liver enzymes and some signs of dehydration with acute kidney injury. She has subsequently also had an abdominal pelvic CT which did not show any acute findings. So, essentially we will be treating her dehydration. PAST MEDICAL HISTORY: 1. Atrial fibrillation. 2. Hypertension. 3. Mitral valve prolapse. 4. Breast cancer with left mastectomy. 5. CKD stage 3. 6. COPD. 7. Arthritis. 8. Dementia. 9. CVA. 10. Constipation. 11. CAD. SURGICAL HISTORY: 1. Left mastectomy. 2. Appendectomy. 3. Hysterectomy. 4. Right knee scope. 5. Lens implants. 6. Bladder tack. 7. Cholecystectomy. SOCIAL HISTORY: She has a remote history of tobacco abuse but this was found on old medical records. She is unable to tell me any details and apparently no alcohol or illicit drug use. She lives at home with her who is her bridge engineer. FAMILY HISTORY: Unable to obtain. ALLERGIES: Codeine and sulfa. HOME MEDICATIONS: 1. Bisacodyl 10 mg per rectum nightly p.r.n. 2. Seroquel 25 mg p.o. nightly. 3. Tylenol 650 p.o. every 4 hours p.r.n. 4. Tums 1000 mg every 4 hours p.r.n. 5. Motrin 400 mg p.o. every 4 hours p.r.n. 6. Clonazepam 1 mg p.o. every 6 hours p.r.n. 7. Aspirin enteric coated 81 mg p.o. daily. 8. Plavix 75 mg p.o. daily. 9. Colace 100 mg p.o. twice daily p.r.n. 10. Aricept 10 mg p.o. nightly. 11. Vitamin D2 50,000 units as directed. 12. Hydrocortisone or Proctozone hemorrhoidal cream twice daily p.r.n. 13. Losartan potassium 12.5 mg p.o. daily. 14. Namenda 10 mg twice daily. 15. Metoprolol extended release 25 mg p.o. daily. 16. Nitroglycerin 0.4 mg sublingual every 5 hours p.r.n. 17. Prilosec 20 mg p.o. twice daily. 18. MiraLAX 17 grams p.o. daily. 19. [place]-Colace 1 tab p.o. twice daily. REVIEW OF SYSTEMS: A 14-point review of systems was completed and all are negative except as mentioned above and in HPI. PHYSICAL EXAMINATION: VITAL SIGNS: Temperature 97.5. Heart rate 92. Respiratory rate 19. Blood pressure 162/96. Saturation 96% on room air. GENERAL: Ms. Nicole Nevarez is an 83-year-old female. She is in no acute distress. She is pleasantly confused with her dementia, no agitation whatsoever. HEENT: Atraumatic and normocephalic. Pupils are equal, round and reactive to light. Extraocular movements intact. Mucous membranes are dry. NECK: Trachea midline. CARDIOVASCULAR: S1, S2. No rubs, gallops, or murmurs. No lower extremity edema. +2 dorsalis and radial pulses. Negative for JVD or carotid bruits. PULMONARY: Clear to auscultation with bilateral breath sounds. No accessory muscle use or work of breathing noted. Tolerating room air. GASTROINTESTINAL: Soft, nontender, nondistended. Positive bowel sounds x4. EXTREMITIES: Moves all extremities equally with decreased range of motion. NEUROLOGICAL: A and O to name and place, pleasantly confused. Sensory is intact. SKIN: Warm, dry, and intact. LABORATORY DATA: White blood cells 6000, hemoglobin 11, hematocrit 38, platelet count 231. Sodium 141, potassium 3.9, BUN 24, creatinine 1.7, glucose 94, calcium 9.5, bilirubin 0.32, AST 226, ALT 85, alkaline phosphatase 108, albumin 4.2, amylase 115. Urinalysis: Moderate leukocytes, 1+ bacteria, otherwise negative. IMAGING: Abdominal x-ray negative. Abdominal pelvic CT: No acute findings. ASSESSMENT AND PLAN: 1. Nausea, vomiting for at least 4 days, decreased appetite. Sensation of feeling full with gas and belching, along with this she does have elevated liver enzymes, so we will follow-up on the abdominal ultrasound. So far abdominal x-ray is negative. Abdominal CT is negative. She is dehydrated as well, so she will receive IV fluid hydration and we will repeat some labs in the morning. 2. Transaminitis, likely secondary to dehydration. She has already had a cholecystectomy, but we are going to follow-up with an abdominal ultrasound, so far the CT was negative. 3. Acute kidney injury on chronic kidney disease stage 3. BUN is not normally elevated, it is just mildly elevated for her. Again, she is going to receive IV fluid hydration and we will repeat labs in the morning. 4. Coronary artery disease. Denies chest pain. We will continue her Plavix and aspirin, her beta lesly. She is not on a statin. 5. Chronic obstructive pulmonary disease. No complaints. 6. Dementia. We will continue the Namenda, Aricept, Seroquel. 7. Constipation. Continue MiraLAX, Senokot, Colace. 8. Atrial fibrillation history. We will get an EKG to evaluate rhythm. It does not appear that she is on any other medications for this as far as anticoagulants. She is on Plavix for the coronary artery disease. 9. Hypertension. We will continue Toprol, we will hold the Losartan for now given the acute kidney injury. 10.Deep venous thrombosis prophylaxis with SCDs. Dictated by DURGA Condon for Bharath Nazario MD Addendum: Patient seen and examined by myself. Agree with DURGA note. It reflects my assessment and plan. Patient is being admitted to hospital for intractable nausea, vomiting and also transaminitis noted in ER labs. Will admit patient to regular floor. Considering her advance dementia also mention the possibility of sending her to rehab. Will check with social professionals and will monitor her closely. cc: Christina Brown, TRANSIT PLANNING MANAGER MD Alexandre Arora MD [facility]
--- NOTE | 2018-11-12 11:32 | Diag Imaging Result Doc PS360 ---
US ABDOMEN-COMPLETE - 11/12/2018 INDICATION: abd pain; n/v; transaminitis COMPARISON: 11/12/2018 FINDINGS: The gallbladder is absent. Common bile duct measures 4 mm. The liver, spleen, and right kidney are normal. Spleen size is 8.8 x 7.9 x 4 cm. The right kidney measures 11.6 x 4.4 x 5.5 cm. The left kidney measures 7.6 x 3.2 x 3.5 cm. The left kidney is severely atrophic. No mass or free fluid. IMPRESSION: Severely atrophic left kidney. No acute disease. Electronically signed by Pranav Cummins 11/12/2018 11:29 AM
[2018-11-12] MEDS: PROTONIX IV SCH ×2 (11:34→20:19)
[2018-11-12] MEDS: TOPROL XL PO SCH (11:34)
[2018-11-12] MEDS: SODIUM CHLORIDE 0.9% INJ SCH (11:34)
[2018-11-12] MEDS: ASPIRIN EC PO SCH (11:34)
[2018-11-12] MEDS: MIRALAX PO SCH (11:34)
[2018-11-12] MEDS: PERICOLACE PO SCH ×2 (11:44→20:20)
[2018-11-12] MEDS: TYLENOL PO PRN (11:44)
[2018-11-12] MEDS ORDERED: ATIVAN IV ONE (12:21)
[2018-11-12] MEDS: NS 1,000 ML IV SCH ×2 (12:32→22:30)
[2018-11-12] MEDS ORDERED: HALDOL IV ONE (14:40)
[2018-11-12] MEDS: ATIVAN IV PRN (14:42)
[2018-11-12] MEDS ORDERED: HALDOL IV PRN (14:45)
[2018-11-12] MEDS: HALDOL IV PRN (14:55)
[2018-11-12] MEDS: SEROQUEL PO SCH (15:26)
[2018-11-12] MEDS: CARAFATE LIQUID PO SCH ×2 (15:28→20:19)
[2018-11-12] MEDS: ARICEPT PO SCH (20:20)
[2018-11-12] MEDS: NAMENDA PO SCH (21:12)
[2018-11-13] MEDS: CARAFATE LIQUID PO SCH ×4 (02:01→19:48)
[2018-11-13 07:15] LABS: BASO# 0.04 X1000 (0.0-0.2); BASO% 0.8 % (0.0-0.8); EOS# 0.26 X1000 (0.0-0.7); EOS% 4.9 % (0.0-10.0); HEMATOCRIT 38.1 % (37.0-47.0); HEMOGLOBIN 11.9 g/dL (12.0-16.0); IMM GRAN# 0.02 X1000 (0.0-0.04); IMM GRAN% 0.4 % (0.0-0.5); LYMPH# 1.37 X1000 (1.2-3.4); MCH 31.2 PG (27-31); MCHC 31.2 g/dL (33-37); MONO# 0.34 X1000 (0.11-0.59); MONO% 6.5 % (1.7-9.3); MPV 10.4 FL (7.4-10.4); NEUT# 3.23 X1000 (1.4-6.5); NEUT% 61.4 % (42.2-75.2); PLT 178 X1000 (130-400); RBC 3.81 XMIL (4.2-5.4); RDW 13.4 % (11.5-14.5); WBC 5.26 X1000 (4.8-10.8)
[2018-11-13 07:20] LABS: INR 0.96; PROTIME 13.6 Seconds (11.0-16.0); PTT 30.9 Seconds (22.3-41.8)
[2018-11-13 07:56] LABS: ALB/GLOB RATIO 1.5; ALBUMIN 3.6 g/dL (3.5-5.0); CALCIUM 8.8 mg/dL (8.8-10.2); CREATININE 1.4 mg/dL (0.5-0.9); POTASSIUM 4.5 mmol/L (3.5-5.1); TOTAL BILIRUBIN 0.36 mg/dL (0.20-1.00)
[2018-11-13] MEDS: MIRALAX PO SCH (08:55)
[2018-11-13] MEDS: NS 1,000 ML IV SCH ×2 (08:55→18:39)
[2018-11-13] MEDS: PLAVIX PO SCH (08:56)
[2018-11-13] MEDS: NAMENDA PO SCH ×2 (08:56→21:21)
[2018-11-13] MEDS: VITAMIN D PO SCH (08:56)
[2018-11-13] MEDS: PERICOLACE PO SCH ×2 (08:56→21:21)
[2018-11-13] MEDS: SODIUM CHLORIDE 0.9% INJ SCH (08:56)
[2018-11-13] MEDS: KLONOPIN PO PRN (08:56)
[2018-11-13] MEDS: ASPIRIN EC PO SCH (08:56)
[2018-11-13] MEDS: TOPROL XL PO SCH (08:56)
[2018-11-13] MEDS: PROTONIX IV SCH ×2 (08:57→21:21)
[2018-11-13] MEDS: ATIVAN IV PRN ×2 (12:24→16:52)
[2018-11-13] MEDS: SEROQUEL PO SCH (14:20)
--- NOTE | 2018-11-13 14:26 | PROGRESS NOTE ---
DATE: 11/13/2018 SUBJECTIVE: The patient is feeling much better. She reports no nausea or vomiting. Yesterday after admission she was very combative, agitated, and actually rude to our nursing staff. Today she is definitely more calmed down. OBJECTIVE: Vital Signs: Temperature is 98, heart rate 70, respiratory rate 18, blood pressure 147/60, and O2 saturation 98% on room air. General: This is an 83-year-old female chronically ill-looking lying in bed in no acute distress. Cardiovascular: S1 and S2 are heard. No murmurs, gallops, or rubs. Regular rate and rhythm. Respiratory: Clear bilaterally to auscultation. No work of breathing or use of accessory muscles. Abdomen: Soft and nontender to palpation. Bowel sounds present. No organomegaly. Extremities: No clubbing, cyanosis, or edema. Peripheral pulses are present in both legs. Neurological: The patient is alert and oriented, confused on place. Moves all extremities spontaneously. LABORATORY DATA: Repeat creatinine is 1.4. ASSESSMENT AND PLAN: 1. Recurrent nausea and vomiting. This condition is almost resolved. The patient is not complaining of any vomiting at all. CT of the abdomen is okay so at this point we will continue to monitor. 2. Transaminitis secondary to dehydration. The patient had a cholecystectomy and her numbers today are getting better. We will continue to monitor her CMP. 3. Acute on chronic kidney disease stage 3. Creatinine is getting better slowly and she is approaching her baseline. We will continue to monitor. 4. Coronary artery disease. The patient is not complaining of any chest pain. Currently she is on aspirin, Plavix, and beta blockers. We will continue with the same management. 5. Chronic obstructive pulmonary disease. The patient is not having any exacerbation. We will continue with breathing treatments as needed only. 6. History of dementia. We will continue with Namenda, Aricept, and Seroquel. 7. History of atrial fibrillation. Actually this patient has a heart rate that is well controlled. We will continue with the same management. DISPOSITION: The expresses the desire to send this patient to a rehab facility. According to him, a [employer] will be here on Thursday to evaluate her and see if she qualifies for rehab or not. cc: Bharath Nazario MD
[2018-11-13] MEDS: HALDOL IV PRN (16:52)
[2018-11-13] MEDS: ARICEPT PO SCH (21:21)
[2018-11-14] MEDS: CARAFATE LIQUID PO SCH ×4 (02:10→19:34)
[2018-11-14] MEDS: NS 1,000 ML IV SCH ×2 (04:46→14:39)
[2018-11-14] MEDS: SODIUM CHLORIDE 0.9% INJ SCH ×2 (08:52→19:34)
[2018-11-14] MEDS: KLONOPIN PO PRN ×2 (08:52→19:34)
[2018-11-14] MEDS: ASPIRIN EC PO SCH (08:52)
[2018-11-14] MEDS: PROTONIX IV SCH ×3 (08:52→22:19)
[2018-11-14] MEDS: PLAVIX PO SCH (08:52)
[2018-11-14] MEDS: NAMENDA PO SCH ×3 (08:52→22:19)
[2018-11-14] MEDS: TOPROL XL PO SCH (08:52)
[2018-11-14] MEDS: PERICOLACE PO SCH ×3 (08:58→22:19)
[2018-11-14] MEDS: MIRALAX PO SCH (08:58)
[2018-11-14 11:31] LABS: ALB/GLOB RATIO 1.7; ALBUMIN 3.5 g/dL (3.5-5.0); CALCIUM 8.6 mg/dL (8.8-10.2); CREATININE 1.5 mg/dL (0.5-0.9); POTASSIUM 4.3 mmol/L (3.5-5.1); TOTAL BILIRUBIN 0.24 mg/dL (0.20-1.00); TOTAL PROTEIN 5.6 g/dL (6.3-8.3)
--- NOTE | 2018-11-14 11:55 | PROGRESS NOTE ---
DATE: 11/14/2018 SUBJECTIVE: Patient reports feeling fine. Apparently, she had been a little bit combative last night, but now she is more calmed down. No complaints of any nausea or vomiting. OBJECTIVE: Vital Signs: Temperature 97.6 degrees, heart rate 66, respiratory rate 20, blood pressure 158/72, O2 saturation 100% on room air. General examination: This is a chronically ill-looking, 83-year-old female, lying in bed in no acute distress. Cardiovascular exam: S1, S2 heard. No murmurs, gallops, or rubs. Regular rate and rhythm. Respiratory exam: Clear bilaterally to auscultation. No work of breathing or using accessory muscles. Abdomen: Soft. Nontender to palpation. Bowel sounds present. No organomegaly. Extremities: No clubbing, cyanosis, or edema. Peripheral pulses present in both legs. Neurological exam: Patient alert and oriented x3. Moves 4 extremities. The patient is a little bit confused today. LABORATORY DATA: Pending. ASSESSMENT AND PLAN: 1. Recurrent nausea and vomiting. Clinically, this patient reports feeling better. So, at this point we will continue with the same management. CT of the abdomen did not show any acute abnormality. 2. Transaminitis secondary to dehydration, getting better. We will continue with the same management. 3. Acute on chronic kidney disease stage III. The labs are pending and BMP from admission to the next day has shown some improvement. We will see what this BMP shows today. 4. Coronary artery disease, stable. Not in any chest pain. We will continue with the same management. 5. Chronic obstructive pulmonary disease. The patient is not in any exacerbation. We will continue with breathing treatments as needed for this patient. 6. History of dementia. We will continue with Namenda. 7. Chronic atrial fibrillation. Heart rate is well controlled. We will continue with the same medication. 8. Disposition. At this point, patient continues to be stable. Long-term plan is to send this patient to rehabilitation facility. custodial maintenance worker has been consulted. Physical therapy team also has been consulted as well. cc: MD NAHED Arora
[2018-11-14] MEDS: SEROQUEL PO SCH (14:38)
[2018-11-14] MEDS: ATIVAN IV PRN (17:36)
[2018-11-14] MEDS: HALDOL IV PRN (17:37)
[2018-11-14] MEDS: ARICEPT PO SCH ×2 (19:34→22:19)
[2018-11-15] MEDS: NS 1,000 ML IV SCH ×2 (01:30→11:02)
[2018-11-15] MEDS: CARAFATE LIQUID PO SCH ×4 (02:40→20:18)
[2018-11-15] MEDS: NAMENDA PO SCH ×2 (09:24→20:10)
[2018-11-15] MEDS: ASPIRIN EC PO SCH (09:24)
[2018-11-15] MEDS: SODIUM CHLORIDE 0.9% INJ SCH ×2 (09:24→20:10)
[2018-11-15] MEDS: MIRALAX PO SCH (09:24)
[2018-11-15] MEDS: PLAVIX PO SCH (09:24)
[2018-11-15] MEDS: PERICOLACE PO SCH ×2 (09:24→20:10)
[2018-11-15] MEDS: TOPROL XL PO SCH (09:24)
[2018-11-15] MEDS: PROTONIX IV SCH ×2 (09:24→20:10)
[2018-11-15 10:11] LABS: ALB/GLOB RATIO 0.9; ALBUMIN 3.1 g/dL (3.5-5.0); CALCIUM 9.1 mg/dL (8.8-10.2); CREATININE 1.3 mg/dL (0.5-0.9); POTASSIUM 4.2 mmol/L (3.5-5.1); TOTAL BILIRUBIN 0.42 mg/dL (0.20-1.00); TOTAL PROTEIN 6.5 g/dL (6.3-8.3)
[2018-11-15] MEDS: COZAAR PO SCH ×2 (11:52→20:10)
--- NOTE | 2018-11-15 11:53 | PROGRESS NOTE ---
DATE: 11/15/2018 SUBJECTIVE: Patient is sleeping and as per who is at bedside, she is doing okay. No nausea or vomiting reported. She was able to eat better. OBJECTIVE: Vital Signs: Temperature 97.7 degrees, heart rate 76, respiratory rate 16, blood pressure 162/77, O2 saturation 100% on room air. General: This is a chronically ill-looking 73- year-old female lying in bed, in no acute distress. Cardiovascular: S1, S2 heard. No murmurs, gallops, or rubs. Regular rate and rhythm. Respiratory: Clear bilaterally to auscultation. No work of breathing or using accessory muscles. Abdomen: Soft , nontender to palpation. Bowel sounds present. No organomegaly. Extremities: No clubbing, cyanosis, or edema. Peripheral pulses present in both legs. Neurological: Patient alert and oriented x3. Moves 4 extremities. LABORATORY DATA: Reviewed. ASSESSMENT AND PLAN: 1. Recurrent nausea and vomiting, resolved. 2. Transaminitis secondary to dehydration. This condition is getting better. We will continue to monitor basic metabolic panel. 3. Acute on chronic kidney disease stage 3. Creatinine is stable. 4. Coronary artery disease, stable. No chest pain reported. Will continue home medications for this medical condition. 5. Chronic obstructive pulmonary disease. Patient is not on any exacerbation. We will continue to monitor and provide breathing treatments as needed only. 6. History of dementia. We will continue with [place]. 7. Chronic atrial fibrillation. Heart rate is well controlled. DISPOSITION: At this point, patient is stable. Long-term plan for her is to send her to rehab facility. utility worker forge has been notified. cc: Bharath Nazario MD MTDD
[2018-11-15] MEDS: SEROQUEL PO SCH (14:57)
[2018-11-15] MEDS: ATIVAN IV PRN ×2 (16:23→20:10)
[2018-11-15] MEDS: ARICEPT PO SCH (20:10)
[2018-11-16] MEDS: CARAFATE LIQUID PO SCH ×4 (01:42→20:58)
[2018-11-16] MEDS: NS 1,000 ML IV SCH ×3 (06:19→14:15)
[2018-11-16 08:32] LABS: ALB/GLOB RATIO 1.6; ALBUMIN 3.6 g/dL (3.5-5.0); CALCIUM 9.1 mg/dL (8.8-10.2); CREATININE 1.2 mg/dL (0.5-0.9); POTASSIUM 3.7 mmol/L (3.5-5.1); TOTAL BILIRUBIN 0.51 mg/dL (0.20-1.00); TOTAL PROTEIN 5.8 g/dL (6.3-8.3)
[2018-11-16] MEDS: TOPROL XL PO SCH (09:41)
[2018-11-16] MEDS: NAMENDA PO SCH ×2 (09:41→21:00)
[2018-11-16] MEDS: VITAMIN D PO SCH (09:41)
[2018-11-16] MEDS: COZAAR PO SCH ×2 (09:41→21:06)
[2018-11-16] MEDS: PERICOLACE PO SCH ×2 (09:41→20:59)
[2018-11-16] MEDS: PLAVIX PO SCH (09:41)
[2018-11-16] MEDS: ASPIRIN EC PO SCH (09:41)
[2018-11-16] MEDS: MIRALAX PO SCH (09:42)
[2018-11-16] MEDS: PROTONIX IV SCH (09:42)
[2018-11-16] MEDS: TYLENOL PO PRN (11:33)
[2018-11-16] MEDS: SEROQUEL PO SCH (14:04)
--- NOTE | 2018-11-16 15:44 | PROGRESS NOTE ---
DATE: 11/16/2018 SUBJECTIVE: This patient is awake. She is oriented x 3. Family members at the bedside, her . She seems to be doing much better. LFTs are better. Blood pressure is a little bit high, so I will start this patient on amlodipine on top of her home medications. I discussed resuscitation status with the patient and , and she has decided to be full code. OBJECTIVE: HEENT: Head normocephalic, no trauma. PERRLA. Neck: Supple. No JVD. Central trachea. Chest: Clear to auscultation. No wheezing. Some crepitus at the bases. Abdomen: Soft, nontender, nondistended. No hepatosplenomegaly. Extremities: No edema. No clubbing. No cyanosis. Neurologic: The patient is alert. She moves all 4 extremities, but she has generalized weakness. She is oriented. LABORATORY: Sodium 145, potassium 3.7, chloride 109, bicarbonate 25, BUN 9, creatinine 1.2, glucose 96, calcium 9.1. AST 19, ALT 57, alkaline phosphatase 122. Albumin 3.6. ASSESSMENT AND PLAN: 1. Recurrent nausea and vomiting, resolved. 2. Transaminitis likely secondary to severe dehydration. This is getting better slowly. Continue with the same management. 3. Acute on chronic kidney disease. Creatinine has been stable, baseline. 4. History of coronary artery disease. Stable, no chest pain. 5. COPD, not in exacerbation. 6. History of dementia. Continue with Namenda. 7. Chronic atrial fibrillation, rate controlled. 8. Disposition: At this point, patient is stable, pending rehab center placement. die try out worker has been notified. 9. Resuscitation status: This patient is full code. 10. Hypertension. I will add for a new blood pressure medication amlodipine once a day to see how she does. cc: Garfield Shukla MD
[2018-11-16] MEDS ORDERED: ZOFRAN PO PRN (16:11)
[2018-11-16] MEDS ORDERED: HALDOL IM PRN (16:17)
[2018-11-16] MEDS: ATIVAN PO PRN ×2 (16:30→20:59)
[2018-11-16] MEDS: ARICEPT PO SCH (20:58)
[2018-11-17] MEDS: CARAFATE LIQUID PO SCH ×3 (02:56→14:20)
[2018-11-17] MEDS ORDERED: PROTONIX PO SCH (07:00)
[2018-11-17 08:15] LABS: BASO# 0.05 X1000 (0.0-0.2); BASO% 0.9 % (0.0-0.8); EOS# 0.35 X1000 (0.0-0.7); HEMATOCRIT 34.6 % (37.0-47.0); HEMOGLOBIN 11.1 g/dL (12.0-16.0); IMM GRAN# 0.02 X1000 (0.0-0.04); IMM GRAN% 0.3 % (0.0-0.5); LYMPH# 1.28 X1000 (1.2-3.4); LYMPH% 21.9 % (20.5-51.1); MCH 30.8 PG (27-31); MCHC 32.1 g/dL (33-37); MCV 96.1 FL (81-99); MONO# 0.46 X1000 (0.11-0.59); MONO% 7.9 % (1.7-9.3); MPV 10.3 FL (7.4-10.4); NEUT# 3.69 X1000 (1.4-6.5); PLT 198 X1000 (130-400); WBC 5.85 X1000 (4.8-10.8)
[2018-11-17 08:36] LABS: ALB/GLOB RATIO 1.5; ALBUMIN 3.5 g/dL (3.5-5.0); CALCIUM 8.9 mg/dL (8.8-10.2); CREATININE 1.3 mg/dL (0.5-0.9); POTASSIUM 3.6 mmol/L (3.5-5.1); TOTAL BILIRUBIN 0.43 mg/dL (0.20-1.00); TOTAL PROTEIN 5.9 g/dL (6.3-8.3)
[2018-11-17] MEDS ORDERED: NORVASC PO SCH (09:00)
[2018-11-17] MEDS: PERICOLACE PO SCH (09:41)
[2018-11-17] MEDS: COZAAR PO SCH (09:41)
[2018-11-17] MEDS: ASPIRIN EC PO SCH (09:41)
[2018-11-17] MEDS: NAMENDA PO SCH (09:41)
[2018-11-17] MEDS: PLAVIX PO SCH (09:41)
[2018-11-17] MEDS: MIRALAX PO SCH (09:42)
[2018-11-17] MEDS: TOPROL XL PO SCH (09:42)
[2018-11-17] MEDS: TYLENOL PO PRN (12:13)
[2018-11-17] MEDS: ATIVAN PO PRN ×2 (12:13→16:13)
[2018-11-17] MEDS: SEROQUEL PO SCH (14:20)
--- NOTE | 2018-11-17 14:49 | DISCHARGE SUMMARY ---
ADMISSION DATE: 11/12/2018 DISCHARGE DATE: 11/17/2018 CONSULTATIONS: None. PERTINENT PROCEDURES: 1. Abdomen and pelvis CT. Incidental nonacute findings. No definite acute pathology. 2. Abdominal ultrasound. Severely atrophic left kidney. No acute disease. DISCHARGE DIAGNOSES: 1. Recurrent nausea and vomiting, resolved. 2. Transaminitis likely secondary to severe dehydration. The patient has slowly improved. 3. Acute on chronic kidney disease. Creatinine is stable at baseline. 4. History of coronary artery disease, stable. No chest pain. 5. COPD, not in exacerbation. 6. History of dementia. Continue Namenda. 7. Chronic atrial fibrillation, rate controlled. 8. Hypertension. Continue home medications. HOSPITAL COURSE: Briefly, Ms. Nevarez is an 83-year-old female with a past medical history of dementia, COPD, coronary artery disease, atrial fibrillation. Was brought to the ED by her stating that she had 4 days of nausea and vomiting, as well as decreased appetite. In the ED she had a normal abdominal x-ray, but did have elevated liver enzymes and some signs of dehydration with acute kidney injury. She had an abdomen and pelvic CT that did not show any acute findings, so she was admitted for intractable nausea and vomiting as well as dehydration. She was given IV fluids, antiemetics and will be discharged to [facility] to continue with physical therapy. VITAL SIGNS: At time of discharge: Temperature is 97.9, heart rate 100, respirations 20, blood pressure 167/99, O2 sat is 95% on room air. DISCHARGE DIET: Regular. DISCHARGE MEDICATIONS: 1. Dulcolax 10 mg suppository RC at bedtime p.r.n. 2. Aspirin 81 mg p.o. daily. 3. Plavix 75 mg p.o. daily. 4. Colace 100 mg p.o. b.i.d. p.r.n. 5. Vitamin D2 50,000 units p.o. as directed. 6. Hydrocortisone 1 application RC b.i.d. p.r.n. 7. Losartan potassium 12.5 mg p.o. b.i.d. 8. Toprol-XL 25 mg p.o. daily. 9. Nitroglycerin 1 tab sublingual q.5 hours p.r.n. chest pain. 10. Prilosec 20 mg p.o. b.i.d. 11. MiraLAX 17 g p.o. q.a.m. 12. Senna 1 tab p.o. b.i.d. 13. Tylenol 325 mg tablets, 2 tablets p.o. q.6 hours p.r.n. 14. Norvasc 5 mg p.o. daily. 15. Aricept 10 mg p.o. at bedtime. 16. Namenda 10 mg tablet p.o. b.i.d. 17. Seroquel 2 tabs q.p.m. daily. 18. Carafate 1 g p.o. AC/HS. FOLLOWUP: Ms. Nevarez is being discharged to [facility]. She will continue to work with physical therapy. She is to take all medications as prescribed. She can return to the ED or call 911 for any worsening of symptoms. Follow up with her primary care physician, Dr. Alexandre Gleason. Discharge time, 35minutes Dictated by DURGA Cheney for Garfield Shukla MD cc: MD Alexandre Parker MD [facility]
[2018-11-17 15:22] VITALS: BP 144/67
== END 2018-11-17 17:57 | DRG 641 ==
LOC: SUPCPDRO → ED 23:55 → SUATTDRO 11-12 09:15 → 3N 11-12 09:15
PROVIDERS: ATTEND Internal Medicine
CPT/HCPCS: 74022; 74176; 76700; 80053; 81001; 82150; 82550; 83735; 84484; 85025; 85610; 85730; 87088; 94761; 94799; 96374; 97110; 97162; 97530; 99285; A9270; C9113; J1630; J2060; J2405; J7030; S0164